=== PATIENT | male | born 1955 | race Caucasian/White ===

== ENCOUNTER → 2016-09-13 | Outpatient (CLI) | payer BC | LOC: GMAJ 17:32 | PROVIDERS: ATTEND Family Medicine | DX: R53.83 Other fatigue (principal) ==

== ENCOUNTER → 2016-10-04 | Outpatient (CLI) | payer BC | LOC: GMAJ 16:47 | PROVIDERS: ATTEND Family Medicine | DX: R94.5 Abnormal results of liver function studies (principal) ==

== ENCOUNTER → 2016-10-05 | Outpatient (CLI) | payer BC ==
--- NOTE | 2016-10-08 08:45 | US ---
EXAM DESCRIPTION: Abdomen,Complete CLINICAL HISTORY: ELEVATED LFTS COMPARISON: None Available. TECHNIQUE: Complete abdominal ultrasound FINDINGS: The liver is at the upper limits of normal in size at 15.5 cm. It demonstrates increased echogenicity. There is no focal hepatic mass. The gallbladder contains an 8 mm polyp.The gallbladder wall measures 2 mm. The common bile duct measures 4.5 mm. Visualized portions are unremarkable, but the pancreas is not well seen due to bowel gas. The spleen is normal in size, shape, and echotexture. The kidneys are normal in size. Multiple nonobstructing calculi in the left renal pelvis measuring up to 7 mm. The IVC and the proximal aorta are unremarkable. IMPRESSION: 1. Increased liver echogenicity, most consistent with steatosis. 2. Gallbladder polyp measuring 8 mm. At a minimum, a six-month follow-up ultrasound is recommended. 3. Left nephrolithiasis. Electronically signed by: Chuy Vela MD 10/08/2016 8:44 AM CDT
== END | disposition home or self-care (01) ==
LOC: US 10:46
PROVIDERS: ATTEND Family Medicine
DX: R94.5 Abnormal results of liver function studies (principal)

== ENCOUNTER → 2016-10-19 | Outpatient (CLI) | payer BC | END | disposition home or self-care (01) | LOC: LAB.O 11:31 | PROVIDERS: ATTEND Internal Medicine Gastroenterology | DX: B18.2 Chronic viral hepatitis C (principal) ==

== ENCOUNTER → 2017-11-25 | Outpatient (CLI) | payer BC | LOC: LAB.O 13:26 | PROVIDERS: ATTEND Internal Medicine Gastroenterology | DX: B18.2 Chronic viral hepatitis C (principal) ==